=== PATIENT | male | born 1995 | race Caucasian/White ===

== ENCOUNTER 2021-01-31 09:09 | Emergency (ER) | payer OTHER ==
[~2021-01-31] VITALS: Ht 185.4 cm; Wt 100.0 kg
--- NOTE | 2021-01-31 09:57 | REP ---
INDICATION: bruising severe pain after falling 5 ft from ropes course COMPARISON: None. TECHNIQUE: AP, lateral, bilateral oblique views. FINDINGS: Lateral swelling. No acute fracture or dislocation. Ankle mortise intact. IMPRESSION: Swelling. No acute fracture or dislocation. <Electronically signed by Luc Fernandez > 01/31/21 0903
--- NOTE | 2021-01-31 09:58 | REP ---
INDICATION: bruising severe pain lat/5th metatarsal COMPARISON: None. TECHNIQUE: AP, lateral, bilateral oblique views right foot. FINDINGS: Swelling over the lateral malleolus noted. The osseous structures and joint spaces are intact and normal. There is no evidence for acute fracture or dislocation. Surrounding soft tissues are otherwise unremarkable. No subcutaneous emphysema or radiodense foreign body. IMPRESSION: Lateral ankle swelling. No acute fracture or dislocation. <Electronically signed by Luc Fernandez > 01/31/21 0903
[2021-01-31 10:29] VITALS: BP 127/85
[2021-01-31] MEDS ORDERED: NORCO 5/325MG TABLET (BULK FOR ED) PO ONE (10:30)
== END 2021-01-31 10:41 | disposition home or self-care (01) ==
LOC: M ED 09:09
DX: S93.491A Sprain of other ligament of right ankle, initial encounter (principal); X50.9XXA Other and unspecified overexertion or strenuous movements or postures, initial encounter; Y92.89 Other specified places as the place of occurrence of the external cause; Y99.1 Military activity

== ENCOUNTER → 2021-09-04 | Outpatient (CLI) | payer OTHER | LOC: M LABSMTC 09:40 | PROVIDERS: ATTEND Anesthesiology | DX: Z01.812 Encounter for preprocedural laboratory examination (principal); Z11.52 Encounter for screening for COVID-19 ==

== ENCOUNTER 2021-09-08 06:04 | Day surgery (SDC) | payer OTHER ==
[~2021-09-08] VITALS: Ht 185.4 cm; Wt 107.0 kg
[~2021-09-08 06:04] MED LIST: EMLA CREAM 5GM TUBE (LIDOCAINE/PRILOCAINE) TOP ONE; LIDOCAINE 1% MDV 20ML VIAL SQ PRN; LR 1,000 ML IV ONE; ceFAZolin SOD 2 GM in IV 1 EA IV ONE
[2021-09-08] MEDS ORDERED: dexameTHASONE 4 MG/ML 1ML VIAL (J1100 PER 1MG) As Ordered ONE ×2 (07:10→07:51)
[2021-09-08] MEDS ORDERED: BUPIVACAINE HCL 0.5% 30 ML VIAL As Ordered ONE (07:10)
[2021-09-08] MEDS ORDERED: LIDOCAINE 1% SDV 30ML VIAL As Ordered ONE (07:10)
[2021-09-08] MEDS ORDERED: LIDOCAINE 2% 100MG/5ML SDV (FOR ANES.) As Ordered ONE (07:51)
[2021-09-08] MEDS ORDERED: ONDANSETRON 4MG/2ML VIAL As Ordered ONE (07:51)
[2021-09-08] MEDS ORDERED: ACETAMINOPHEN 1000MG 100ML IV BTL (OFIRMEV) (J0131 PER 10MG) As Ordered ONE (07:51)
[2021-09-08] MEDS ORDERED: propofoL 200 MG/20 ML VIAL As Ordered ONE (07:51)
[2021-09-08] MEDS ORDERED: fentaNYL 250 MCG/5 ML INJECTION (J3010) As Ordered ONE (07:51)
[2021-09-08] MEDS ORDERED: GLYCOPYRROLATE INJ 0.2 MG/ML 2 ML VIAL As Ordered ONE (07:51)
[2021-09-08] MEDS ORDERED: MIDAZOLAM INJ 2MG/2ML VIAL (J2250 PER 1MG) As Ordered ONE (07:51)
[2021-09-08] MEDS ORDERED: KETOROLAC 60MG 2ML VIAL As Ordered ONE (07:58)
[2021-09-08] MEDS ORDERED: ePHEDrine SULFATE 25 MG/5 ML(5MG/ML) SYRINGE As Ordered ONE (08:06)
[2021-09-08] MEDS ORDERED: HYDR-3713 PO (09:12)
[2021-09-08] MEDS ORDERED: fentaNYL 100 MCG/2 ML INJECTION (J3010) IV PRN (09:25)
[2021-09-08] MEDS ORDERED: PERCOCET 5MG/325MG TAB PO PRN (09:25)
[2021-09-08] MEDS ORDERED: LR 1,000 ML IV SCH (09:25)
[2021-09-08] MEDS ORDERED: ONDANSETRON 4MG/2ML VIAL IV PRN (09:25)
[2021-09-08] MEDS ORDERED: METOCLOPRAMIDE INJ 10MG/2ML VIAL (J2765 PER 1) IV PRN (09:25)
[2021-09-08 09:41] VITALS: BP 131/66
--- NOTE | 2021-09-08 10:42 | RO ---
OPERATIVE NOTE DATE OF OPERATION: 09/08/2021 PREOPERATIVE DIAGNOSIS: Right foot anterior tibiofibular ligament rupture. POSTOPERATIVE DIAGNOSIS: Right foot anterior tibiofibular ligament rupture. PROCEDURE: Right anterior tibiofibular ligament repair with internal brace. SURGEON: Bhaskar Mukherjee DPM [employer]PER[employer]: None ANESTHESIA: LMA with injection of 20 mL of a 1:1 mixture of 1% lidocaine plain, 1/2% Marcaine plain. ESTIMATED BLOOD LOSS: Minimal. MATERIALS: [employer] FiberTak suture anchor, 1.3 mm x2 and [employer] InternalBrace implant system, 2-0, 3-0 and 4-0 Vicryl, 4-0 nylon INJECTABLES: None. COMPLICATION: None. CONDITION: Stable. INDICATIONS: Aguila Souza is a 25-year-old male who has chronic ankle sprain with rupture of his anterior tibiofibular ligament, presents today for surgical correction. The patient's side and site were identified and marked in the preoperative area. Consent was reviewed and obtained. The risks, complications and alternatives to the procedure were explained to the patient in detail and all questions were answered. DESCRIPTION OF PROCEDURE: The patient was brought to the operating room and placed on the operating table in supine position. General LMA anesthesia was delivered by the anesthesia team after an injection of 20 mL of a 1:1 mixture of 1% Lidocaine plain and 1/2% Marcaine plain was injected in the right foot. The right foot was prepped and draped in normal sterile fashion. A tourniquet was applied to the right thigh and inflated at 250 mmHg. An incision was drawn along the lateral ankle and carried through. A #15 blade dissection was carried to the retinaculum. An incision was made and this was reflected, allowing exposure of the anterior tibiofibular ligament which was in poor condition. This was reflected off the distal fibula. First the InternalBrace SutureTak was inserted into the talus. Following this, the FiberTak suture anchors were inserted into the distal fibula and these were used to reattach the anterior tibiofibular ligament under improved tension. Next, the InternalBrace was inserted into the fibula under good tension according to the undercar specialist protocol. Improvement in stability and resistance to inversion was noted. Repair was augmented using the retinaculum with a 2-0 Vicryl. Deep closure was performed with 3-0 Vicryl and skin closure with 4-0 nylon. Sterile dressings were applied. A posterior splint was applied. The patient was brought to the PACU with vital signs stable, neurovascular status intact. He will be nonweightbearing and will follow up in office in two days.
== END 2021-09-08 10:18 | disposition home or self-care (01) ==
LOC: M SDC 06:04
PROVIDERS: ATTEND Podiatrist Foot & Ankle Surgery
DX: S93.431A Sprain of tibiofibular ligament of right ankle, initial encounter (principal); X50.9XXA Other and unspecified overexertion or strenuous movements or postures, initial encounter; Y92.89 Other specified places as the place of occurrence of the external cause; Y93.89 Activity, other specified; Y99.8 Other external cause status; R06.83 Snoring; F17.220 Nicotine dependence, chewing tobacco, uncomplicated
CPT/HCPCS: 27695; C1713; J0131; J0690; J1100; J1885; J2250; J2405; J3010

== ENCOUNTER → 2022-12-19 | Outpatient (CLI) | payer OTHER ==
[~2022-12-19] MED LIST changes: -EMLA CREAM 5GM TUBE (LIDOCAINE/PRILOCAINE) TOP ONE; +HYDR-3713 PO; -LIDOCAINE 1% MDV 20ML VIAL SQ PRN; -LR 1,000 ML IV ONE; -ceFAZolin SOD 2 GM in IV 1 EA IV ONE
== END ==
LOC: M OUTALCOH 07:44
PROVIDERS: ATTEND Psychiatry & Neurology Psychiatry
DX: F10.10 Alcohol abuse, uncomplicated (principal)

== ENCOUNTER 2022-12-26 10:25 | Outpatient (RCR) | payer OTHER | END 2022-12-27 | LOC: M OUTALCOH 10:25 | PROVIDERS: ATTEND Psychiatry & Neurology Psychiatry | DX: Z03.89 Encounter for observation for other suspected diseases and conditions ruled out (principal) ==